=== PATIENT | female | born 1955 | race African-American/Black ===

== ENCOUNTER 2025-03-18 09:30 | Inpatient (IN) | payer MEDICARE, MEDICAID ==
[2025-03-18] VITALS (18 sets, daily range): BP systolic 105–157; BP diastolic 70–135; PULSE 69–86; RESP 14–31; TEMP 36.696–36.9; O2SAT 92–98
[~2025-03-18] VITALS: Ht 157.5 cm; Wt 80.7 kg
[~2025-03-18 09:30] MED LIST: ADVAIR
[2025-03-18] MEDS: ACETAMINOPHEN 500MG TABLET PO ONE (10:18)
[2025-03-18] MEDS: TETANUS, DIPHTHERIA, PERTUSSIS VAC/PF 0.5ML (>10YR OLD) IM ONE (10:19)
[2025-03-18] MEDS: ONDANSETRON HCL 4MG/2ML INJ IV ONE (12:12)
[2025-03-18 12:15] LABS: BASOPHILS % 0.4 % (0.0-2.0); EOSINOPHILS % 0.6 % (0.0-5.0); HEMATOCRIT. 39.1 % (36.0-48.0); HEMOGLOBIN. 13.2 g/dL (12.0-16.0); LYMPHOCYTES % 8.0 % (20.0-50.0); MEAN PLATELET VOLUME 7.7 fl (7.4-10.4); MONOCYTES % 5.9 % (2.0-8.0); NEUTROPHILS % 85.1 % (40.0-76.0); PLATELET 132 x1000/uL (130-400); RED BLOOD CELL COUNT 4.49 mill/uL (4.2-5.4); RED CELL DISTRIBUTION WIDTH 16.2 % (11.6-14.6)
[2025-03-18 12:36] LABS: INR 1.0
[2025-03-18 12:48] LABS: CREATININE 0.9 mg/dL (0.6-1.0); UREA NITROGEN BLOOD 17 mg/dL (9-23)
[2025-03-18] MEDS ORDERED: GUAIFENESIN 200MG/10ML SUGAR FREE UDC PO PRN (14:45)
[2025-03-18] MEDS ORDERED: DOCUSATE SODIUM 100MG CAPSULE PO PRN (14:45)
[2025-03-18] MEDS ORDERED: MAGNESIUM/ALUMINUM HYDROXIDE/SIMETHICONE 30ML UDC PO PRN (14:45)
[2025-03-18] MEDS ORDERED: ACETAMINOPHEN 325MG TABLET PO PRN (14:45)
[2025-03-18] MEDS ORDERED: IPRATROPIUM/ALBUTEROL 0.5-3(2.5)MG/3ML NEB HHN PRN (14:45)
[2025-03-18] MEDS ORDERED: DEXTROSE 50% WATER 50ML SYRINGE IV PRN (14:45)
[2025-03-18] MEDS ORDERED: NICARDIPINE 100 MG in SODIUM CHLORIDE 0.9% 60 ML IV PRN ×2 (15:00→19:30)
[2025-03-18] MEDS ORDERED: MORPHINE SULFATE 2 MG/ML INJ (NOT FOR IM USE) IV PRN (15:00)
[2025-03-18] MEDS ORDERED: NALOXONE HCL 0.4MG/ML VIAL IV PRN (15:00)
[2025-03-18] MEDS: DEXT 5%/LACTATED RINGERS 1,000 ML IV SCH (15:12)
[2025-03-18] MEDS ORDERED: IPRATROPIUM BROMIDE (0.02%) 0.5MG/2.5ML NEB HHN PRN (15:15)
[2025-03-18] MEDS: ACETAMINOPHEN 325MG TABLET PO PRN (18:50)
[2025-03-18] MEDS: BLOOD SUGAR DIAGNOSTIC STRIP TEST SCH (21:13)
[2025-03-19] VITALS (63 sets, daily range): BP systolic 92–172; BP diastolic 66–154; PULSE 63–107; RESP 12–28; TEMP 36.7–37.1; O2SAT 89–100
[2025-03-19] MEDS ORDERED: FLUT1AER INH (02:10)
[2025-03-19] MEDS ORDERED: MULT-1146 MT (02:10)
[2025-03-19] MEDS ORDERED: ASPI-1497 PO (02:10)
[2025-03-19] MEDS ORDERED: AMLO10TA80 PO (02:10)
[2025-03-19] MEDS ORDERED: HYDR25TA PO (02:10)
[2025-03-19 05:41] LABS: BASOPHILS % 0.7 % (0.0-2.0); EOSINOPHILS % 2.5 % (0.0-5.0); HEMATOCRIT. 37.8 % (36.0-48.0); HEMOGLOBIN. 12.9 g/dL (12.0-16.0); LYMPHOCYTES % 26.2 % (20.0-50.0); MEAN PLATELET VOLUME 8.0 fl (7.4-10.4); MONOCYTES % 11.2 % (2.0-8.0); NEUTROPHILS % 59.4 % (40.0-76.0); PLATELET 124 x1000/uL (130-400); RED BLOOD CELL COUNT 4.42 mill/uL (4.2-5.4); RED CELL DISTRIBUTION WIDTH 16.2 % (11.6-14.6)
[2025-03-19 05:52] LABS: CREATININE 0.9 mg/dL (0.6-1.0); TRIGLYCERIDE 126 mg/dL (0-150); UREA NITROGEN BLOOD 14 mg/dL (9-23)
[2025-03-19 05:53] LABS: LDL CHOLESTEROL 135 mg/dL (5-100)
[2025-03-19] MEDS: PANTOPRAZOLE SODIUM 40 MG/VIAL IV SCH (08:19)
[2025-03-19] MEDS: CLONIDINE 0.2MG TABLET PO PRN (09:13)
[2025-03-19] MEDS: AMLODIPINE 10MG TABLET PO SCH (09:13)
[2025-03-19] MEDS: POLYETHYLENE GLYCOL 3350 (17GM) 1 DOSE PACK PO PRN (16:50)
[2025-03-19] MEDS: ONDANSETRON HCL 4MG/2ML INJ IV PRN (18:33)
[2025-03-19] MEDS ORDERED: LIP40 PO (18:41)
[2025-03-19] MEDS ORDERED: ATORVASTATIN CALCIUM 40MG TABLET PO SCH (21:00)
== END 2025-03-19 20:15 | disposition home or self-care (01) | DRG 87 ==
LOC: ER 09:38 → MICUSO 11:43 → ENRESERV 17:18
PROVIDERS: ADMIT Internal Medicine; ATTEND Internal Medicine
PROC: 0HQ0XZZ Repair Scalp Skin, External Approach (ICD-10-PCS; principal; 2025-03-18)
DX: S06.5X0A Traumatic subdural hemorrhage without loss of consciousness, initial encounter (principal); S01.01XA Laceration without foreign body of scalp, initial encounter; I10 Essential (primary) hypertension; E78.5 Hyperlipidemia, unspecified; S06.0X0A Concussion without loss of consciousness, initial encounter; J44.89 Other specified chronic obstructive pulmonary disease; Z87.891 Personal history of nicotine dependence; Y08.89XA Assault by other specified means, initial encounter; Y93.89 Activity, other specified; Y92.89 Other specified places as the place of occurrence of the external cause; Y99.8 Other external cause status
CPT/HCPCS: 12001; 36415; 80048; 80061; 82962; 83036; 84443; 85014; 85018; 85025; 86850; 86900; 90715; 93970; 97162; 99285; A4606; A6449; J2405; J2470; J3490; J7050